=== PATIENT | male | born 1985 | race African-American/Black ===

== ENCOUNTER 2017-03-27 09:56 | Emergency (ER) | payer OTHER ==
[~2017-03-27] VITALS: Ht 185.4 cm; Wt 118.5 kg
[~2017-03-27 09:56] MED LIST: DOCUSATE SODIU100 PO; DYMISTA1 SPR NS; LEVOTHYROXIN0.025 MG PO; LOVASTATIN40 M1 PO; [UNRECOGNIZED DRUG - CODE] PO
[2017-03-27 11:30] VITALS: BP 121/79
== END 2017-03-27 11:39 | disposition home or self-care (01) ==
LOC: ED 09:56
DX: J18.9 Pneumonia, unspecified organism (principal); F84.0 Autistic disorder

== ENCOUNTER 2017-04-03 10:20 | Emergency (ER) | payer OTHER ==
[2017-04-03 11:40] LABS: BASOPHIL % 0.8 % (0-2); PLATELET COUNT 208 x10^3mcL (130-400); RED CELL DISTRIBUTION WIDTH 13.2 % (11.5-14.5)
[2017-04-03 12:33] LABS: CALCIUM 8.4 mg/dL (8.5-10.1); CARBON DIOXIDE 23.6 mmol/L (21-32); CHLORIDE SERUM 111 mmol/L (98-107); GFR1 > 60 mL/min; GLUCOSE SERUM 89 mg/dL (74-106); SODIUM SERUM 146 mmol/L (136-145)
[2017-04-03 12:45] LABS: ALBUMIN 3.6 g/dL (3.4-5.0); ALKALINE PHOSPHATASE 50 U/L (46-116); ALT/SGPT 34 U/L (16-63); AST/SGOT 18 U/L (15-37); TOTAL PROTEIN, SERUM 7.3 g/dL (6.4-8.2)
[2017-04-03 13:42] VITALS: BP 119/74
== END 2017-04-03 13:42 | disposition home or self-care (01) ==
LOC: ED 10:20
PROVIDERS: Emergency Medicine
DX: R05 Cough (principal)
CPT/HCPCS: 36415; 83880; Q0092

== ENCOUNTER 2020-05-13 12:49 | Emergency (ER) | payer OTHER ==
[~2020-05-13] VITALS: Ht 185.4 cm; Wt 78.0 kg
[2020-05-13 12:56] VITALS: BP 116/89; Ht 185.4 cm; Wt 78.0 kg
== END 2020-05-13 15:08 | disposition home or self-care (01) ==
LOC: ED 12:49
DX: K59.00 Constipation, unspecified (principal); Z88.1 Allergy status to other antibiotic agents; E03.9 Hypothyroidism, unspecified